=== PATIENT | female | born 1990 | race Two or more races ===

== ENCOUNTER 2016-08-10 21:37 | Emergency (ER) | payer OTHER ==
[2016-08-10 21:47] VITALS: TEMP 98.5; BMI 29.2
--- NOTE | 2016-08-10 23:24 | PDOC ---
History of Present Illness - General Chief Complaint: Psychiatric Stated Complaint: DEPRESSION Time Seen by Provider: 08/10/16 21:52 History Source: Patient Exam Limitations: No Limitations - History of Present Illness Initial Comments: 26-year-old female without any past medical history presents to the emergency department with her mother and 8-year-old daughter complaining of feeling sad and depressed but adamantly denies suicidal thoughts/intentions or homicidal thoughts/intentions. Patient states her of 10 years moved out 2 weeks ago and has made her feel sad. Patient denies any headache, dizziness, lightheadedness, nausea/vomiting, fever/chills, chest pain, shortness of breath , abdominal pains, urinary symptoms, extremity numbness or tingling sensation. Patient says she would never hurt himself because she has a 8-year-old daughter and her mother who is very supportive of her. Timing/Duration: yesterday Associated Symptoms: denies symptoms Past History - Past Medical History Allergies/Adverse Reactions: Allergies fish derived [Fish derived] Allergy (Verified 08/10/16 21:44) rash,swelling Home Medications: Ambulatory Orders NK [No Known Home Medication] 03/29/16 LMP: 06/26/12 - Immunization History Immunization Up to Date: No - Social History Smoking History: No Smoking Status: Never smoked Number of Cigarettes Per Day: 0 Alcohol Use: occasionally Drug Use: none *Review of Systems - Review of Systems Able to Perform ROS?: Yes Comments:: 08/10/16 23:30 CONSTITUTIONAL: Absent: fever, chills, diaphoresis, generalized weakness, malaise, loss of appetite HEENT: Absent: rhinorrhea, nasal congestion, throat pain, throat swelling, difficulty swallowing, mouth swelling, ear pain, eye pain, visual Changes CARDIOVASCULAR: Absent: chest pain, loss of consciousness, palpitations, irregular heart rate, peripheral edema RESPIRATORY: Absent: cough, shortness of breath, dyspnea with exertion, orthopnea, wheezing, stridor, hemoptysis GASTROINTESTINAL: Absent: abdominal pain, abdominal distension, nausea, vomiting, diarrhea, constipation, melena, hematochezia GENITOURINARY: Absent: dysuria, frequency, urgency, hesitancy, hematuria, flank pain, genital pain MUSCULOSKELETAL: Absent: myalgia, arthralgia, joint swelling SKIN: Absent: rash, itching, pallor HEMATOLOGIC/IMMUNOLOGIC: Absent: easy bleeding, easy bruising, lymphadenopathy, frequent infections ENDOCRINE: Absent: unexplained weight gain, unexplained weight loss, heat intolerance, cold intolerance NEUROLOGIC: Absent: headache, focal weakness or paresthesias, dizziness, unsteady gait, seizure, mental status changes, bladder or bowel incontinence PSYCHIATRIC: +depressed Absent: anxiety, suicidal or homicidal ideation, hallucinations. *Physical Exam - Vital Signs Last Vital Signs Temp Pulse Resp BP Pulse Ox 98.5 F 78 20 111/72 100 08/10/16 21:39 08/10/16 21:39 08/10/16 21:39 08/10/16 21:39 08/10/16 21:39 - Physical Exam Comments: 08/10/16 23:30 GENERAL: Well developed, well nourished. Awake and alert. No acute distress. HEENT: Normocephalic, atraumatic. PERRLA, EOMI. No conjunctival pallor. Sclera are non- icteric. Moist mucous membranes. Oropharynx is clear. NECK: Supple. Full ROM. No JVD. Carotid pulses 2+ and symmetric, without bruits. No thyromegaly. No lymphadenopathy. CARDIOVASCULAR: Regular rate and rhythm. No murmurs, rubs, or gallops. Distal pulses are 2+ and symmetric. PULMONARY: No evidence of respiratory distress. Lungs clear to auscultation bilaterally. No wheezing, rales or rhonchi. ABDOMINAL: Soft. Non-tender. Non-distended. No rebound or guarding. No organomegaly. Normoactive bowel sounds. MUSCULOSKELETAL Normal range of motion at all joints. No bony deformities or tenderness. No CVA tenderness. EXTREMITIES: No cyanosis. No clubbing. No edema. No calf tenderness. SKIN: Warm and dry. Normal capillary refill. No rashes. No jaundice. NEUROLOGICAL: Alert, awake, appropriate. Cranial nerves 2-12 intact. No deficits to light touch and temperature in face, upper extremities and lower extremities. No motor deficits in the in face, upper extremities and lower extremities. Normoreflexic in the upper and lower extremities. Normal speech. Toes are down- going bilaterally. Gait is normal without ataxia. PSYCHIATRIC: Cooperative. Good eye contact. Appropriate mood and affect. *DC/Admit/Observation/Transfer Diagnosis at time of Disposition: Depression (emotion) Qualifiers: Depression Type: other depression Qualified Code(s): F32.89 - Other specified depressive episodes - Discharge Dispostion Disposition: HOME Condition at time of disposition: Stable - Referrals Referrals: STAFF,NOT ON [Primary Care Provider] - Isabella Barrett MD [Staff Physician] - - Patient Instructions Printed Discharge Instructions: DI for Depression -- Adult Progress Note - Progress Note Progress Note: 2215hrs:Called Nena GÓMEZ/psychiatry continuity director 2300hrs: Called psychiatry continuity director/ Dr. Barrett 0021hrs; Called DR. Barrett/psychiatry continuity director No response 0117hrs: Patient agrees to stay in the emergency department until morning to see a psychiatrist. 0610hrs: Called Dr. Barrett/psychiatrist 0628hrs: Dr. Reddy called back; will consult pt this morning 0700hrs: Signed out to DORINA Cavazos. Dr. Barrett will consult pt in the ER this morning
[2016-08-11] MEDS ORDERED: ALPRAZolam 0.25 MG TABLET PO ONE (00:39)
[2016-08-11] MEDS ORDERED: ALPRAZolam 0.25 MG TABLET ONE (00:46)
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
[2016-08-11 10:39] VITALS: BP 123/66; PULSE 81
== END 2016-08-11 10:39 | disposition home or self-care (01) ==
LOC: JER 21:37
DX: F32.89 Other specified depressive episodes (principal); F41.8 Other specified anxiety disorders
CPT/HCPCS: 99283-25

== ENCOUNTER 2016-08-17 14:22 | Emergency (ER) | payer OTHER ==
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
[2016-08-17 15:04] VITALS: BP 125/83; PULSE 80; TEMP 98; BMI 29.2
--- NOTE | 2016-08-17 16:32 | PN ---
Progress Note (short form) - Note Progress Note: Patient returned to Er reporting that she could not find any psych to see her. staff report that she mentioned some thing about wanting to drive her car into a tree. Patient deniers any suicidal plans, feels frustrated> she vcame wiytjh her mom. She denies any other vself damaging plans. PLAN : discharge from Er. will go to [address] to a mental health clinic.
== END 2016-08-17 16:52 | disposition home or self-care (01) ==
LOC: JER 14:22
DX: F32.89 Other specified depressive episodes (principal)
CPT/HCPCS: 99282-25

== ENCOUNTER 2017-03-20 13:42 | Emergency (ER) | payer BC, OTHER ==
[2017-03-20 13:50] VITALS: TEMP 98; BMI 27.1
--- NOTE | 2017-03-20 14:45 | PDOC ---
History of Present Illness <LelandHeather - Last Filed: 03/20/17 14:44> - History of Present Illness Initial Comments: 03/20/17 15:36 Ms. Lagos is a 27 yo female with no pmh who presents with a 2 day history of pain to coccyx region when sitting. She rates the pain as 10/10 and says she has had accompanying subjective fevers and chills. She reports she has had similar in the past between her thighs as well as to the back of her knee but they usually go away and are not as painful. Allergies: NKDA <Douglas Myers - Last Filed: 03/20/17 18:11> - General Chief Complaint: Abscess Boil Stated Complaint: CYST Time Seen by Provider: 03/20/17 14:44 Past History - Past Medical History COPD: No Other medical history: NONE - Surgical History Abdominal Surgery: Yes Appendectomy: Yes - Immunization History Immunization Up to Date: No - Suicide/Smoking/Psychosocial Hx Smoking Status: No Smoking History: Never smoked Have you smoked in the past 12 months: No Number of Cigarettes Smoked Daily: 0 Hx Alcohol Use: Yes (SOCIAL) Drug/Substance Use Hx: No Substance Use Type: None <Heather Gramajo - Last Filed: 03/20/17 14:44> <Douglas Myers - Last Filed: 03/20/17 18:11> - Past Medical History Allergies/Adverse Reactions: Allergies Allergy/AdvReac Type Severity Reaction Status Date / Time fish derived [Fish derived] Allergy rash,swelli Verified 03/20/17 17:43 ng No Known Drug Allergies Allergy Unverified 03/20/17 17:43 Home Medications: Ambulatory Orders Naproxen [Naprosyn -] 250 mg PO BID #28 tablet 03/20/17 Review of Systems - Review of Systems Comments:: 03/20/17 15:38 GENERAL/CONSTITUTIONAL: No fever or chills. No weakness. HEAD, EYES, EARS, NOSE AND THROAT: No change in vision. No ear pain or discharge. No sore throat. CARDIOVASCULAR: No chest pain or shortness of breath RESPIRATORY: No cough, wheezing, or hemoptysis. GASTROINTESTINAL: No nausea, vomiting, diarrhea or constipation. GENITOURINARY: No dysuria, frequency, or change in urination. MUSCULOSKELETAL: No joint or muscle swelling or pain. No neck or back pain. SKIN: +Pain noted to "tailbone" NEUROLOGIC: No headache, vertigo, loss of consciousness, or change in strength/ sensation. ENDOCRINE: No increased thirst. No abnormal weight change HEMATOLOGIC/LYMPHATIC: No anemia, easy bleeding, or history of blood clots. ALLERGIC/IMMUNOLOGIC: No hives or skin allergy. <Douglas Myers - Last Filed: 03/20/17 18:11> *Physical Exam - Vital Signs Last Vital Signs Temp Pulse Resp BP Pulse Ox 98.0 F 83 20 116/66 99 03/20/17 13:47 03/20/17 13:47 03/20/17 13:47 03/20/17 13:47 03/20/17 13:47 <Heather Gramajo - Last Filed: 03/20/17 14:44> - Vital Signs Last Vital Signs Temp Pulse Resp BP Pulse Ox 98.0 F 83 20 116/66 99 03/20/17 13:47 03/20/17 13:47 03/20/17 13:47 03/20/17 13:47 03/20/17 13:47 - Physical Exam Comments: 03/20/17 15:38 GENERAL: Awake, alert, and fully oriented, in no acute distress HEAD: No signs of trauma, normocephalic, atraumatic EYES: PERRLA, EOMI, sclera anicteric, conjunctiva clear ENT: Auricles normal inspection, hearing grossly normal, nares patent, oropharynx clear without exudates. Moist mucosa NECK: Normal ROM, supple, no lymphadenopathy, JVD, or masses LUNGS: No distress, speaks full sentences, clear to auscultation bilaterally HEART: Regular rate and rhythm, normal S1 and S2, no murmurs, rubs or gallops, peripheral pulses normal and equal bilaterally. ABDOMEN: Soft, nontender, normoactive bowel sounds. No guarding, no rebound. No masses EXTREMITIES: Normal inspection, Normal range of motion, no edema. No clubbing or cyanosis. NEUROLOGICAL: Cranial nerves II through XII grossly intact. Normal speech, normal gait, no focal sensorimotor deficits SKIN: +top of intergluteal cleft is acutely painful to touch with firmness appreciated (left more than right to both firmness and pain). No erythema, warmth, or fluctuance noted. Area is approximately 2.5 cm in diameter on left and 0.5 cm diameter on right. <Douglas Myers - Last Filed: 03/20/17 18:11> ED Treatment Course - LABORATORY CBC & Chemistry Diagram: 03/20/17 16:37 03/20/17 16:37 <Douglas Myers - Last Filed: 03/20/17 18:11> Medical Decision Making - Medical Decision Making 03/20/17 18:06 Exam positive for pilonidal cyst in intergluteal cleft. Labs grossly wnl as below. Naproxen proscribed for pain control until patient able to present to gen surg. Patient verbalized understanding and will follow-up. Laboratory Results - last 24 hr 03/20/17 03/20/17 03/20/17 16:37 16:37 16:37 WBC 12.7 H RBC 4.65 Hgb 14.7 Hct 44.0 MCV 94.5 MCH 31.5 MCHC 33.3 RDW 13.8 Plt Count 209 MPV 10.0 Neutrophils % 71.0 Lymphocytes % 20.9 D Monocytes % 6.9 Eosinophils % 0.8 Basophils % 0.4 Sodium 138 Potassium 4.3 Chloride 104 Carbon Dioxide 31 Anion Gap 3 L BUN 7 D Creatinine 0.8 Creat Clearance w eGFR > 60 Random Glucose 102 Calcium 8.6 Total Bilirubin 1.0 D AST 10 L D ALT 23 D Alkaline Phosphatase 106 Total Protein 7.3 Albumin 3.6 Serum , Qual Negative Urine HCG, Qual 03/20/17 16:37 WBC RBC Hgb Hct MCV MCH MCHC RDW Plt Count MPV Neutrophils % Lymphocytes % Monocytes % Eosinophils % Basophils % Sodium Potassium Chloride Carbon Dioxide Anion Gap BUN Creatinine Creat Clearance w eGFR Random Glucose Calcium Total Bilirubin AST ALT Alkaline Phosphatase Total Protein Albumin Serum , Qual Urine HCG, Qual Negative <Douglas Myers - Last Filed: 03/20/17 18:11> *DC/Admit/Observation/Transfer <Heather Gramajo - Last Filed: 03/20/17 14:44> <Douglas Myers - Last Filed: 03/20/17 18:11> Diagnosis at time of Disposition: Pilonidal cyst - Discharge Dispostion Disposition: HOME - Prescriptions Prescriptions: Naproxen [Naprosyn -] 250 mg PO BID #28 tablet - Referrals Referrals: Jean Wild MD [Staff Physician] - - Patient Instructions Printed Discharge Instructions: Pilonidal Cyst Additional Instructions: Please return if unable to control pain with proscribed medications or if you experience fever, chills, or other concerning symptoms. Follow-up with Dr. Wild as discussed.
[2017-03-20 16:58] LABS: BASOPHIL 0.4 % (0-2.0); EOSINOPHIL 0.8 % (0-4.5); MCH 31.5 pg (25.7-33.7); MCHC 33.3 g/dl (32.0-36.0); MEAN CELL VOLUME 94.5 fl (80-96); PLATELET COUNT 209 K/MM3 (134-434); RDW 13.8 % (11.6-15.6); WHITE BLOOD COUNT 12.7 K/mm3 (4.0-10.0)
[2017-03-20] MEDS ORDERED: KETOROLAC TROMETHAMINE 15 MG/ML VIAL IVPUSH ONE (17:09)
[2017-03-20 17:35] LABS: ALBUMIN 3.6 g/dl (3.4-5.0); ALK PHOS 106 U/L (45-117); ANION GAP 3 (8-16); CALCIUM 8.6 mg/dL (8.5-10.1); CO2 31 mmol/L (21-32); CREATININE 0.8 mg/dL (0.55-1.02); GLUCOSE,RANDOM 102 mg/dL (74-106); SGOT/AST 10 U/L (15-37); SGPT/ALT 23 U/L (12-78); TOT PROT 7.3 g/dl (6.4-8.2)
[2017-03-20] MEDS ORDERED: KETOROLAC TROMETHAMINE 15 MG/ML VIAL IM ONE (17:35)
[2017-03-20] MEDS ORDERED: KETOROLAC TROMETHAMINE 15 MG/ML VIAL ONE (17:44)
[2017-03-20 18:21] VITALS: BP 114/65; PULSE 78
== END 2017-03-20 18:21 | disposition home or self-care (01) ==
LOC: JER 13:42
PROC: 3E0233Z Introduction of Anti-inflammatory into Muscle, Percutaneous Approach (ICD-10-PCS; principal; 2017-03-20)
DX: L05.91 Pilonidal cyst without abscess (principal)
CPT/HCPCS: 36415; 80053; 84703; 85025; 99282-25

== ENCOUNTER 2017-03-26 14:03 | Inpatient (IN) | payer BC ==
[2017-03-26 14:10] VITALS: BMI 27.1
[2017-03-26] MEDS ORDERED: morphine CARPU-JECT 2 MG/1 ML DISP.SYRIN IVPUSH ONE (14:30)
[2017-03-26] MEDS ORDERED: VANCOMYCIN 1,000 MG in DEXTROSE 5%-WATER - 250 ML IVPB ONE (14:30)
--- NOTE | 2017-03-26 14:35 | PDOC ---
History of Present Illness <Bobby Donovan - Last Filed: 03/26/17 15:25> - General History Source: Patient Exam Limitations: No Limitations - History of Present Illness Initial Comments: 03/26/17 15:06 The patient is a 27 year old female with no significant PMH who presents to the emergency department with a worsening gluteal abscess. The patient reports that she was at the ED on 03/20 for the same painful, persistent gluteal abscess and was sent home on anti-inflammatories. The patient went to Dr. Whiting today who attempted incision and drainage but was referred to Dr. Britt for OR I&D because the abscess was too deep. The patient presents today with increased swelling, fever and chills since last night. The patient notes that the gluteal abscess is warm and is unable to comfortably sit or walk. The patient denies any drainage. The patient states that she has had abscesses in the past that either resolved on their own or with I&D. Allergies: Shellfish Past surgical history: None reported. Social history: No reported alcohol, drug, or cigarette use. PCP: Dr. Whiting <Kia Vega - Last Filed: 03/26/17 15:29> - General Chief Complaint: Wound Stated Complaint: POST SURG (PCP SENT) Time Seen by Provider: 03/26/17 14:21 Past History - Past Medical History COPD: No - Surgical History Abdominal Surgery: Yes Appendectomy: Yes - Immunization History Immunization Up to Date: No - Suicide/Smoking/Psychosocial Hx Smoking Status: No Smoking History: Never smoked Have you smoked in the past 12 months: No Number of Cigarettes Smoked Daily: 0 Hx Alcohol Use: No Drug/Substance Use Hx: No Substance Use Type: None <Bobby Donovan - Last Filed: 03/26/17 15:25> <Kia Vega - Last Filed: 03/26/17 15:29> - Past Medical History Allergies/Adverse Reactions: Allergies Allergy/AdvReac Type Severity Reaction Status Date / Time fish derived [Fish derived] Allergy rash,swelli Verified 03/26/17 14:11 ng No Known Drug Allergies Allergy Verified 03/26/17 14:11 Home Medications: Ambulatory Orders NK [No Known Home Medication] 03/26/17 Review of Systems - Review of Systems Constitutional: Yes: Chills, Fever Respiratory: No: Cough ABD/GI: No: Blood Streaked Bowels : No: Dysuria, Hematuria Integumentary: Yes: See HPI All Other Systems: Reviewed and Negative <Bobby Donovan - Last Filed: 03/26/17 15:25> *Physical Exam - Vital Signs Last Vital Signs Temp Pulse Resp BP Pulse Ox 97.9 F 85 18 110/69 98 03/26/17 14:07 03/26/17 14:07 03/26/17 14:07 03/26/17 14:07 03/26/17 14:07 <Bobby Donovan - Last Filed: 03/26/17 15:25> - Vital Signs Last Vital Signs Temp Pulse Resp BP Pulse Ox 97.9 F 85 18 110/69 98 03/26/17 14:07 03/26/17 14:07 03/26/17 14:07 03/26/17 14:07 03/26/17 14:07 - Physical Exam Comments: 03/26/17 15:00 GENERAL: The patient is awake, alert, and fully oriented. HEAD: Normal with no signs of trauma. EYES: Pupils equal, round and reactive to light, extraocular movements intact, sclera anicteric, conjunctiva clear with no pallor. ENT: Ears normal, nares patent, oropharynx clear without exudates. Moist mucous membranes. NECK: Normal range of motion, supple without lymphadenopathy, JVD, or masses. LUNGS: Breath sounds equal, clear to auscultation bilaterally. No wheeze/ crackles. HEART: Regular rate and rhythm, normal S1 and S2 without murmur or rub. ABDOMEN: Soft/nontender/nondistended. BS wnl. No guarding or rebound. No palpable masses. No hepatosplenomegaly. EXTREMITIES: Normal range of motion, no edema. No clubbing or cyanosis. No cords, erythema, or tenderness. NEUROLOGICAL: Cranial nerves II through XII grossly intact. Normal speech, normal gait. PSYCH: Normal mood, normal affect. SKIN: (+) 10 cm induration and tenderness on the upper left gluteal cleft radiating slightly to the right. Stellate incision was made. Bloody ooze. No cellulitis. No crepitus. <Kia Vega - Last Filed: 03/26/17 15:29> ED Treatment Course - LABORATORY CBC & Chemistry Diagram: 03/26/17 14:23 03/26/17 14:23 <Bobby Donovan - Last Filed: 03/26/17 15:25> - LABORATORY CBC & Chemistry Diagram: 03/26/17 14:23 03/26/17 14:23 - ADDITIONAL ORDERS Additional order review: 03/26/17 14:23 RBC 4.33 MCV 93.7 MCHC 33.0 RDW 13.1 MPV 9.5 Neutrophils % 76.3 Lymphocytes % 13.6 D Monocytes % 8.8 Eosinophils % 0.5 Basophils % 0.8 - Medications Given in the ED: ED Medications Discontinued Medications Generic Name Dose Route Start Last Admin Trade Name Pepe PRN Reason Stop Dose Admin Morphine Sulfate 2 mg 03/26/17 14:30 03/26/17 14:46 Morphine Injection - IVPUSH 03/26/17 14:31 2 mg ONCE ONE Administration <Kia Vega - Last Filed: 03/26/17 15:29> Medical Decision Making - Medical Decision Making 03/26/17 14:32 A portion of this note was documented by scribe services under my direction. I have reviewed the details of the note, within reason, and agree with the documentation with the following case summary and management plan written by me. Healthy 27-year-old female presents for persistent and worsening gluteal abscess. Initially presented on 03/20 with 1 day of symptoms, was discharged on anti-inflammatories, but over the last 6 days reports increasing swelling and pain and redness with fever/chills last night, seen at Dr. Whiting office today and attempted incision and drainage but wound was found to be too deep, referred to ED for OR with Dr. Britt. afebrile abd soft R upper gluteal induration and tenderness, about 10cm, extending to the gluteal cleft. stellate incision draining blood, no cellulitis/crepitus 27y/o F with gluteal cyst/abscess with increasing pain/swelling. afebrile here, sent for OR I+D with Dr. britt. pre-op labs pain control admitted to Dr. Whiting as planned. leukocytosis of 16. D/W leonidas Whitingaqthelma and blood cultures added <Bobby Donovan - Last Filed: 03/26/17 15:25> - Medical Decision Making 2:40pm Consulted with Dr. Britt for I&D <Kia Vega - Last Filed: 03/26/17 15:29> *DC/Admit/Observation/Transfer <Bobby Donovan - Last Filed: 03/26/17 15:25> - Attestations Scribe Attestion: 03/26/17 15:01 Documentation prepared by Kia Vega, acting as medical records manager for Bobby Donovan MD. <Kia Vega - Last Filed: 03/26/17 15:29> Diagnosis at time of Disposition: Pilonidal cyst, Abscess, gluteal, right - Discharge Dispostion Condition at time of disposition: Fair
[2017-03-26 14:43] LABS: BASOPHIL 0.8 % (0-2.0); EOSINOPHIL 0.5 % (0-4.5); MCH 30.9 pg (25.7-33.7); MEAN CELL VOLUME 93.7 fl (80-96); MEAN PLT VOLUME 9.5 fl (7.5-11.1); NEUTROPHILS 76.3 % (42.8-82.8); PLATELET COUNT 226 K/MM3 (134-434); RDW 13.1 % (11.6-15.6); WHITE BLOOD COUNT 16.2 K/mm3 (4.0-10.0)
[2017-03-26 15:09] LABS: ALBUMIN 3.4 g/dl (3.4-5.0); ALK PHOS 122 U/L (45-117); ANION GAP 7 (8-16); BILIRUBIN,TOTAL 1.2 mg/dL (0.2-1.0); CALCIUM 8.4 mg/dL (8.5-10.1); CO2 26 mmol/L (21-32); CREATININE 0.7 mg/dL (0.55-1.02); GLUCOSE,RANDOM 91 mg/dL (74-106); SGOT/AST 20 U/L (15-37); SGPT/ALT 43 U/L (12-78); TOT PROT 7.5 g/dl (6.4-8.2)
[2017-03-26 15:11] LABS: INR 1.28 (0.82-1.09); PROTHROMBIN TIME (PATIENT) 14.5 SEC (9.98-11.88)
[2017-03-26] MEDS ORDERED: LEVOFLOXACIN 500 MG IVPB 500 MG/100 ML BAG IVPB ONE (15:13)
[2017-03-26 15:14] LABS: ACTIVATED PTT 28.3 SECONDS (26.9-34.4)
[2017-03-26] MEDS ORDERED: ONDANSETRON 4 MG/2 ML VIAL IVPUSH PRN (15:16)
--- NOTE | 2017-03-26 15:17 | HP ---
Admitting History and Physical - Primary Care Physician PCP: Gerardo Whiting - Admission Chief Complaint: SENT FROM MY OFFICE FOR ABSCESS TO BUTTOCK History of Present Illness: PATIENT FAILED ON PO ABX OUTPATIENT FOR ABSCESS TO PERIRECTAL AREA, HOT HARD AND TENDER, I AND D ATTEMPTED IN MY OFFICE BUT UNSUCCESSFUL. SENT TO ED FOR IV ABX AND SURGERY TO I AND D IN OPERATING ROOM History Source: Patient - Smoking History Smoking history: Never smoked Have you smoked in the past 12 months: No Aproximately how many cigarettes per day: 0 - Alcohol/Substance Use Hx Alcohol Use: No Home Medications - Allergies Allergies/Adverse Reactions: Allergies Allergy/AdvReac Type Severity Reaction Status Date / Time fish derived [Fish derived] Allergy rash,swelli Verified 03/26/17 14:11 ng No Known Drug Allergies Allergy Verified 03/26/17 14:11 - Home Medications Home Medications: Ambulatory Orders NK [No Known Home Medication] 03/26/17 Review of Systems - Review of Systems Constitutional: reports: Fever Eyes: reports: No Symptoms HENT: reports: No Symptoms Neck: reports: No Symptoms Cardiovascular: reports: No Symptoms Respiratory: reports: No Symptoms Gastrointestinal: reports: No Symptoms Genitourinary: reports: No Symptoms Musculoskeletal: reports: No Symptoms Integumentary: reports: No Symptoms Neurological: reports: No Symptoms Endocrine: reports: No Symptoms Hematology/Lymphatic: reports: No Symptoms Psychiatric: reports: No Symptoms Physical Examination Vital Signs: Vital Signs Temperature 97.9 F 03/26/17 14:07 Pulse Rate 85 03/26/17 14:07 Respiratory Rate 18 03/26/17 14:07 Blood Pressure 110/69 03/26/17 14:07 O2 Sat by Pulse Oximetry (%) 98 03/26/17 14:07 Constitutional: Yes: Severe Distress Eyes: Yes: WNL HENT: Yes: WNL Neck: Yes: WNL Cardiovascular: Yes: WNL Respiratory: Yes: WNL Gastrointestinal: Yes: WNL Renal/: Yes: WNL Musculoskeletal: Yes: Back Pain Extremities: Yes: WNL Edema: No Peripheral Pulses WNL: Yes Integumentary: Yes: Erythema Wound/Incision: Yes: Open to air, Draining (TENDER ABSCESS 6CM TO BUTTOCK), Reddened, Excoriated Neurological: Yes: WNL ...Motor Strength: WNL Psychiatric: Yes: WNL Labs: CBC, BMP 03/26/17 14:23 03/26/17 14:23 Problem List - Problems (1) Abscess, gluteal, right Code(s): L02.31 - CUTANEOUS ABSCESS OF BUTTOCK (2) Pilonidal cyst Code(s): L05.91 - PILONIDAL CYST WITHOUT ABSCESS Assessment/Plan IV ABX SURGERY FOR I AND D PAIN CONTROL
[2017-03-26] MEDS ORDERED: ACETAMINOPHEN 325 MG TABLET (FP) PO PRN (15:19)
[2017-03-26] MEDS ORDERED: morphine SULFATE 4 MG/ML VIAL ONE (16:57)
[2017-03-26] MEDS: morphine SULFATE 4 MG/ML VIAL IVPUSH PRN (17:00)
[2017-03-26] MEDS ORDERED: FLU VACCINE QUAD 60 MCG/0.5 ML (MDV 17-18) IM ONE (18:49)
--- NOTE | 2017-03-26 21:06 | CONSULT ---
- Consultation REQUESTING PROVIDER: Johanne RICO/Marleny RICO CONSULT REQUEST: We have been asked to surgically evaluate this patient for ( specify). PCP:Gerardo Whiting HISTORY OF PRESENT ILLNESS:Flako who is a y/o female w/ a h/o cutaneous abscesses in the past who presents with a 1 week or greater h/.o pain and swelling and redness over her left medial gluteal cleft; she was txed w/ PO antibiotics w/o relief and an attempt at I and D in the office of the PCOP who subsequently sent her to the ER for evaluation; she c/o unrelenting pain PMHx: as abov e only PSHx: as above only Home Medications Medication Instructions Recorded NK [No Known Home Medication] 03/26/17 Allergies Allergy/AdvReac Type Severity Reaction Status Date / Time fish derived [Fish derived] Allergy rash,swelli Verified 03/26/17 14:11 ng No Known Drug Allergies Allergy Verified 03/26/17 14:11 REVIEW OF SYSTEMS: CONSTITUTIONAL: fever CARDIOVASCULAR: Absent: chest pain, syncope, palpitations, irregular heart rate, lightheadedness , peripheral edema RESPIRATORY: Absent: cough, shortness of breath, dyspnea with exertion, wheezing, stridor, hemoptysis GASTROINTESTINAL: Absent: abdominal pain, abdominal distension, nausea, vomiting, diarrhea, constipation, melena, hematochezia GENITOURINARY: Absent: dysuria, frequency, urgency, hesitancy, hematuria, flank pain, genital pain MUSCULOSKELETAL: Absent: myalgia, arthralgia, joint swelling, back pain, neck pain SKIN: Absent: rash, itching, pallor HEMATOLOGIC/IMMUNOLOGIC: Absent: easy bleeding, easy bruising, lymphadenopathy NEUROLOGIC: Absent: headache, focal weakness, paresthesias, dizziness, unsteady gait, seizure, mental status changes, bladder or bowel incontinence PSYCHIATRIC: Absent: anxiety, depression, suicidal or homicidal ideation, hallucinations. PHYSICAL EXAM: GENERAL: Awake, alert, and fully oriented, in acute distress b/o pain HEAD: Normal with no signs of trauma. EYES: PERRL, sclera anicteric, conjunctiva clear. NECK: Normal ROM, supple without lymphadenopathy, JVD, or masses. ABDOMEN: Soft, nontender, not distended, normoactive bowel sounds, no guarding, no rebound, no masses. No organomegaly. MUSCULOSKELETAL: Normal ROM at all joints. No bony deformities or tenderness. No CVA tenderness. UPPER EXTREMITIES: 2+ pulses, warm, well-perfused. No cyanosis. Cap refill <2 seconds. No peripheral edema. LOWER EXTREMITIES: 2+ pulses, warm, well-perfused. No calf tenderness. No peripheral edema. NEUROLOGICAL: Normal speech, gait not observed. PSYCH: Cooperative. Good eye contact. Appropriate mood and affect. SKIN: Warm, dry, normal turgor, STS and induration and erythema w/ttp over a previous recent I and D site and the surrounding area; blood draining from the I and D site Vital Signs Temperature 98.9 F 03/26/17 18:48 Pulse Rate 107 H 03/26/17 18:48 Respiratory Rate 18 03/26/17 18:48 Blood Pressure 113/69 03/26/17 18:48 O2 Sat by Pulse Oximetry (%) 98 03/26/17 14:07 Lab Results WBC 16.2 K/mm3 (4.0-10.0) H 03/26/17 14:23 RBC 4.33 M/mm3 (3.60-5.2) 03/26/17 14:23 Hgb 13.4 GM/dL (10.7-15.3) 03/26/17 14:23 Hct 40.6 % (32.4-45.2) 03/26/17 14:23 MCV 93.7 fl (80-96) 03/26/17 14:23 MCHC 33.0 g/dl (32.0-36.0) 03/26/17 14:23 RDW 13.1 % (11.6-15.6) 03/26/17 14:23 Plt Count 226 K/MM3 (134-434) 03/26/17 14:23 Sodium 138 mmol/L (136-145) 03/26/17 14:23 Potassium 3.7 mmol/L (3.5-5.1) 03/26/17 14:23 Chloride 105 mmol/L (98-107) 03/26/17 14:23 Carbon Dioxide 26 mmol/L (21-32) 03/26/17 14:23 Anion Gap 7 (8-16) L 03/26/17 14:23 BUN 13 mg/dL (7-18) D 03/26/17 14:23 Creatinine 0.7 mg/dL (0.55-1.02) 03/26/17 14:23 Random Glucose 91 mg/dL (74-106) 03/26/17 14:23 Calcium 8.4 mg/dL (8.5-10.1) L 03/26/17 14:23 Blood Type O POSITIVE 03/26/17 14:23 Antibody Screen Negative 03/26/17 14:23 INR 1.28 (0.82-1.09) H 03/26/17 14:23 W/U to date reviewed; CT scan pelvis pending IMP: ABSSSI of the left gluteal cleft of possible pilonidal origin PLAN: I and D in OR IN AM; r/b/t/a's d/w the patient who will give informed consent; she understands the wound will remian open to drain by secondary intention. Jean Wild MD FACS Visit type - Case Type Case Type: ED Admission - Emergency Emergency Visit: Yes ED Registration Date: 03/26/17 Care time: The patient presented to the Emergency Department on the above date and was hospitalized for further evaluation of their emergent condition. - New patient This patient is new to me today: Yes Date on this admission: 03/26/17 - Critical Care Critical Care patient: No
[2017-03-26] MEDS: D5-1/2NS+20 MEQ KCL - 20 MEQ/1,000 ML INFUS.BAG IV SCH (22:35)
[2017-03-27] MEDS: morphine SULFATE 4 MG/ML VIAL IVPUSH PRN ×2 (02:52→20:15)
[2017-03-27] MEDS: D5-1/2NS+20 MEQ KCL - 20 MEQ/1,000 ML INFUS.BAG IV SCH (06:07)
[2017-03-27] MEDS ORDERED: morphine SULFATE 4 MG/ML VIAL IVPUSH PRN ×2 (07:00→10:33)
[2017-03-27 07:57] LABS: MCH 31.1 pg (25.7-33.7); MCHC 33.2 g/dl (32.0-36.0); MEAN CELL VOLUME 93.5 fl (80-96); MEAN PLT VOLUME 9.8 fl (7.5-11.1); PLATELET COUNT 191 K/MM3 (134-434); RDW 13.2 % (11.6-15.6); WHITE BLOOD COUNT 14.1 K/mm3 (4.0-10.0)
[2017-03-27 08:33] LABS: ALBUMIN 2.8 g/dl (3.4-5.0); ANION GAP 7 (8-16); CALCIUM 8.3 mg/dL (8.5-10.1); CO2 28 mmol/L (21-32); CREATININE 0.7 mg/dL (0.55-1.02); GLUCOSE,RANDOM 105 mg/dL (74-106); SGPT/ALT 38 U/L (12-78)
[2017-03-27 08:35] LABS: ALK PHOS 111 U/L (45-117); SGOT/AST 20 U/L (15-37); TOT PROT 6.2 g/dl (6.4-8.2)
[2017-03-27] MEDS ORDERED: SODIUM CHLORIDE 1,000 ML IV SCH (10:30)
--- NOTE | 2017-03-27 10:33 | PN ---
Progress Note, Physician Chief Complaint: AWAKE IN MODERATE DISTRESS PAIN CONTROLLED - Current Medication List Current Medications: Active Medications Acetaminophen (Tylenol -) 650 mg PO Q6H PRN PRN Reason: FEVER OR PAIN Last Admin: 03/26/17 19:01 Dose: 650 mg Sodium Chloride (Normal Saline -) 1,000 mls @ 100 mls/hr IV ASDIR STEPHANY Morphine Sulfate (Morphine Sulfate) 1 mg IVPUSH Q4H PRN PRN Reason: PAIN Last Admin: 03/27/17 07:26 Dose: 1 mg Ondansetron HCl (Zofran Injection) 4 mg IVPUSH Q4H PRN PRN Reason: NAUSEA AND/OR VOMITING - Objective Vital Signs: Vital Signs Temperature 98.9 F 03/27/17 06:34 Pulse Rate 83 03/27/17 06:34 Respiratory Rate 18 03/27/17 06:34 Blood Pressure 92/55 03/27/17 06:34 O2 Sat by Pulse Oximetry (%) 98 03/26/17 21:00 Constitutional: Yes: Moderate Distress Eyes: Yes: WNL HENT: Yes: WNL Neck: Yes: WNL Cardiovascular: Yes: WNL Respiratory: Yes: WNL Gastrointestinal: Yes: WNL ...Rectal Exam: Yes: Other Genitourinary: Yes: WNL Musculoskeletal: Yes: Muscle Pain Extremities: Yes: WNL Edema: No Peripheral Pulses WNL: Yes Integumentary: Yes: Other Wound/Incision: Yes: Open to air, Other (LARGE ABSCESS PINODAL SACRAL BUTTOCK ABSCESS TENDER TO TOUCH) Neurological: Yes: WNL ...Motor Strength: WNL Psychiatric: Yes: WNL Labs: CBC, BMP 03/27/17 06:00 03/27/17 06:00 INR, PTT INR 1.28 (0.82-1.09) H 03/26/17 14:23 Problem List - Problems (1) Abscess, gluteal, right Code(s): L02.31 - CUTANEOUS ABSCESS OF BUTTOCK (2) Pilonidal cyst Code(s): L05.91 - PILONIDAL CYST WITHOUT ABSCESS Assessment/Plan MEDICALLY CLEARED FOR ABSCESS I AND D IV ABX NORMAL SALINE 250 CC BOLUS NOW FOR LOW BP NORMAL SALINE 100C HR REDUCE MORPHINE 2MG Q 6 HRS PRN CHANGE TO PERCOCET PO POST OP
[2017-03-27] MEDS ORDERED: SODIUM CHLORIDE 0.9% 1000 ML INFUS.BAG IV ONE (11:00)
[2017-03-27] MEDS ORDERED: VANCOMYCIN 1,000 MG in DEXTROSE 5%-WATER - 250 ML IVPB SCH (12:00)
--- NOTE | 2017-03-27 13:06 | CON.ID ---
Consult Consult Specialty:: Infectious Disease Reason for Consultation:: Abscess - History of Present Illness History of Present Illness: This is a 27 year old female with history of small skin abscesses (last time 4 yrs ago)presenting with progressively worsening gluteal crease pain and induration since 1 week ago. She was seen in the ER initial and discharged home. She was then seen as outpatient by her physician who attempted incision and drainage but induration was too deep. The patient is now hospitalized and awaiting I+D in the OR. She reports fever and chills and extreme pain especially while ambulating. Denies having any other specific complaints. 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: No: Alzheimer's, CVA, Dementia, Migraine, Multiple Sclerosis, Peripheral Neuropathy, Parkinson's, Seizure, Syncope, TIA, Vertigo, Other Cardio/Vascular: No: AFIB, Aneurysm, Aortic Insufficiency, Aortic Stenosis, CAD , CHF, Deep Vein Thrombosis, HTN, Hyperlipdemia, VA, Mitral Insufficiency, Mitral Stenosis, Murmur, Pulmonary Hypertension, Other Pulmonary: No: Asthma, Bronchitis, Cancer, COPD, O2 Dependent, Pneumonia, Previously Intubated, Pulmonary Embolus, Pulmonary Fibrosis, Sleep Apnea, Other Gastrointestinal: No: Ascites, Cancer, Constipation, Crohn's Disease, Diverticulitis, Diverticulosis, Esophageal Varices, Gastritis, GERD, GI Bleed, Hemorrhoids, Hiatal Hernia, Inflamatory Bowel Disease, Irritable Bowel Disease, Pancreatitis, Peptic Ulcer Disease, Ulcerative Colitis, Other Hepatobiliary: No: Cirrhosis, Cholelithiasis, Cholecystitis, Choledocholithiasis , Hepatitis A, Hepatitis B, Hepatitis C, Other Renal/: No: Renal Failure, Renal Inusuff, BPH, Cancer, Hematuria, Hemodialysis , Neurogenic Bladder, Renal Calculi, UTI, Other Reproductive: No: Ectopic , Endometriosis, Fibroids, PID, Polycystic Ovary Syndrome, Postmenopausal, Other Heme/Onc: No: Anemia, B12 Deficiency, Bleeding Disorder, Cancer, Current Chemotherapy, Current Radiation Therapy, Hemochromatosis, Hypercoaguable State, Myeloproliferative Synd, Sickle Cell Disease, Sickle Cell Trait, Thrombocytopenia, Other Infectious Disease: No: AIDS, C-Diff, Herpes Zoster, HIV, MRSA, STD's, Tuberculosis, VREF, Other Psych: No: Addictions, Anxiety, Bipolar, Depression, Panic, Psychosis, Schizophrenia, Other Musculoskeletal: No: Bursitis, Chronic low back pain, Hemiparesis, Hemiplegia, Osteoarthritis, Paraplegia, Other Rheumatology: No: Fibromyalgia, Gout, Lupus, Rheumatoid Arthritis, Sarcoidosis, Vasculitis, Other ENT: No: Allergic Rhinitis, Sinusitis, Other Endocrine: No: Montour's Disease, [place]'s Disease, Diabetes Insipidus, Diabetes Mellitus (I+D of previous abscesses), Hyperparathyroidism, Hyperthyroidism, Hypothyroidism, Osteopenia, SIADH, Other - Alcohol/Substance Use Hx Alcohol Use: No - Smoking History Smoking history: Never smoked Have you smoked in the past 12 months: No Aproximately how many cigarettes per day: 0 - Social History Usual Living Arrangement: With Child Home Medications - Allergies Allergies/Adverse Reactions: Allergies Allergy/AdvReac Type Severity Reaction Status Date / Time fish derived [Fish derived] Allergy rash,swelli Verified 03/26/17 14:11 ng No Known Drug Allergies Allergy Verified 03/26/17 14:11 - Home Medications Home Medications: Ambulatory Orders NK [No Known Home Medication] 03/26/17 Family Disease History - Family Disease History Family History: Unable to Obtain Review of Systems - Review of Systems Constitutional: reports: Chills, Fever Eyes: reports: No Symptoms HENT: reports: No Symptoms Neck: reports: No Symptoms Cardiovascular: reports: No Symptoms Respiratory: reports: No Symptoms Gastrointestinal: reports: No Symptoms Genitourinary: reports: No Symptoms Breasts: reports: No Symptoms Reported Musculoskeletal: reports: No Symptoms Integumentary: reports: Erythema, Other (induration, tenderness) Neurological: reports: No Symptoms Endocrine: reports: No Symptoms Hematology/Lymphatic: reports: No Symptoms Psychiatric: reports: No Symptoms Physical Exam Vital Signs: Vital Signs Temperature 98.9 F 03/27/17 06:34 Pulse Rate 83 03/27/17 06:34 Respiratory Rate 18 03/27/17 06:34 Blood Pressure 92/55 03/27/17 06:34 O2 Sat by Pulse Oximetry (%) 98 03/26/17 21:00 Constitutional: Yes: Mild Distress HENT: Yes: WNL Neck: Yes: WNL Cardiovascular: Yes: Regular Rate and Rhythm Respiratory: Yes: CTA Bilaterally Gastrointestinal: Yes: Normal Bowel Sounds, Soft Renal/: Yes: WNL Musculoskeletal: Yes: WNL Extremities: Yes: WNL Integumentary: Yes: Other (induration/erythema/tenderness in Rt gluteal/gluteal crease, no current drainage) Neurological: Yes: Alert Psychiatric: Yes: Alert, Oriented Labs: CBC, BMP 03/27/17 06:00 03/27/17 06:00 CBC,CMP WBC 14.1 K/mm3 (4.0-10.0) H 03/27/17 06:00 RBC 3.86 M/mm3 (3.60-5.2) 03/27/17 06:00 Hgb 12.0 GM/dL (10.7-15.3) D 03/27/17 06:00 Hct 36.1 % (32.4-45.2) 03/27/17 06:00 MCV 93.5 fl (80-96) 03/27/17 06:00 MCH 31.1 pg (25.7-33.7) 03/27/17 06:00 MCHC 33.2 g/dl (32.0-36.0) 03/27/17 06:00 RDW 13.2 % (11.6-15.6) 03/27/17 06:00 Plt Count 191 K/MM3 (134-434) 03/27/17 06:00 MPV 9.8 fl (7.5-11.1) 03/27/17 06:00 Neutrophils % 76.3 % (42.8-82.8) 03/26/17 14:23 Lymphocytes % 13.6 % (8-40) D 03/26/17 14:23 Monocytes % 8.8 % (3.8-10.2) 03/26/17 14:23 Eosinophils % 0.5 % (0-4.5) 03/26/17 14:23 Basophils % 0.8 % (0-2.0) 03/26/17 14:23 Sodium 137 mmol/L (136-145) 03/27/17 06:00 Potassium 3.8 mmol/L (3.5-5.1) 03/27/17 06:00 Chloride 102 mmol/L (98-107) 03/27/17 06:00 Carbon Dioxide 28 mmol/L (21-32) 03/27/17 06:00 Anion Gap 7 (8-16) L 03/27/17 06:00 BUN 9 mg/dL (7-18) D 03/27/17 06:00 Creatinine 0.7 mg/dL (0.55-1.02) 03/27/17 06:00 Creat Clearance w eGFR > 60 (>60) 03/27/17 06:00 Random Glucose 105 mg/dL (74-106) 03/27/17 06:00 Calcium 8.3 mg/dL (8.5-10.1) L 03/27/17 06:00 Total Bilirubin 1.0 mg/dL (0.2-1.0) 03/27/17 06:00 AST 20 U/L (15-37) 03/27/17 06:00 ALT 38 U/L (12-78) 03/27/17 06:00 Alkaline Phosphatase 111 U/L (45-117) 03/27/17 06:00 Total Protein 6.2 g/dl (6.4-8.2) L 03/27/17 06:00 Albumin 2.8 g/dl (3.4-5.0) L 03/27/17 06:00 Serum , Qual Negative 03/26/17 14:23 Microbiology 03/26/17 14:30 Abscess Wound Culture - Preliminary NO GROWTH OBTAINED AFTER 24 HOURS INCUBATION, REINCUBATED. Problem List - Problems (1) Fever Code(s): R50.9 - FEVER, UNSPECIFIED (2) Leukocytosis Code(s): D72.829 - ELEVATED WHITE BLOOD CELL COUNT, UNSPECIFIED (3) Abscess, gluteal, right Code(s): L02.31 - CUTANEOUS ABSCESS OF BUTTOCK Assessment/Plan - continue Vancomycin IV - awaiting I+D in OR - intra-op wound cultures - pain control - wound care - repeat cbc in am, monitor temperatures
[2017-03-27] MEDS ORDERED: MIDAZOLAM HCL 2 MG/2 ML SINGLE DOSE VIAL ONE (14:30)
[2017-03-27] MEDS ORDERED: PROPOFOL 20 ML ONE (14:30)
[2017-03-27] MEDS ORDERED: LIDOCAINE HCL/PF 2% SDV 5ML VIAL ONE (14:32)
[2017-03-27] MEDS ORDERED: DEXAMETHASONE SOD PHOSPHATE 4 MG/1 ML VIAL ONE (15:17)
[2017-03-27] MEDS ORDERED: KETOROLAC TROMETHAMINE 30 MG/1 ML VIAL ONE (15:18)
[2017-03-27] MEDS ORDERED: LACTATED RINGERS SOLUTION 1,000 ML IV SCH ×2 (15:45→16:08)
--- NOTE | 2017-03-27 15:52 | OP ---
Operative Note - Note: Operative Date: 03/27/17 Pre-Operative Diagnosis: pilonidal abscess Operation: I and D pilonidal abscess Surgeon: Jean Wild Construction Equipment Mechanic: Rosie Seymour Anesthesia: General Estimated Blood Loss (mls): 10 Drains & Tubes with Location: 1/2" iodoform packing
--- NOTE | 2017-03-27 15:53 | SURG ---
Surgery Doctor Assistant Note Doctor Assistant: Rosie Seymour PA-C Date of Service: 03/27/17 Diagnosis: pilonidal cyst Procedure: Incision and drainage of pilonidal cyst I was present for the entirety of the operative procedure. For further detail, please refer to operative report. Visit type - Case Type Case Type: ED Admission - Emergency Emergency Visit: Yes ED Registration Date: 03/26/17 Care time: The patient presented to the Emergency Department on the above date and was hospitalized for further evaluation of their emergent condition. - New patient This patient is new to me today: Yes Date on this admission: 03/27/17
[2017-03-27] MEDS ORDERED: ACETAMINOPHEN 1000 MG/100 ML VIAL (NON FORMULARY) IVPB ONE ×2 (16:00→16:45)
[2017-03-27] MEDS ORDERED: HYDROmorphone HCL CARPU-JECT 1 MG/1 ML DISP.SYRIN IVPUSH PRN (16:08)
[2017-03-27] MEDS ORDERED: ONDANSETRON 4 MG/2 ML VIAL IVPUSH PRN (16:08)
[2017-03-27] MEDS ORDERED: HYDROmorphone HCL CARPU-JECT 2 MG/1 ML DISP.SYRIN ONE (16:13)
[2017-03-27] MEDS: HYDROmorphone HCL CARPU-JECT 1 MG/1 ML DISP.SYRIN IVPUSH PRN ×2 (16:20→16:45)
[2017-03-27] MEDS ORDERED: VANCOMYCIN 1,000 MG in DEXTROSE 5%-WATER - 250 ML IVPB ONE (16:45)
[2017-03-27] MEDS: SODIUM CHLORIDE 1,000 ML IV SCH (17:00)
[2017-03-28] MEDS ORDERED: PT OWN MED DRAWER 7, Y5N ONE (00:10)
[2017-03-28] MEDS: VANCOMYCIN 1,000 MG in DEXTROSE 5%-WATER - 250 ML IVPB SCH ×3 (00:12→23:23)
[2017-03-28] MEDS: morphine SULFATE 4 MG/ML VIAL IVPUSH PRN ×4 (01:21→20:28)
[2017-03-28] MEDS: ACETAMINOPHEN 325 MG TABLET (FP) PO PRN ×2 (09:52→18:53)
--- NOTE | 2017-03-28 10:15 | PN ---
Progress Note, Physician Chief Complaint: EVENTS REVIEWED TOLERATING PAIN - Current Medication List Current Medications: Active Medications Acetaminophen (Tylenol -) 650 mg PO Q6H PRN PRN Reason: FEVER OR PAIN Last Admin: 03/28/17 09:52 Dose: 650 mg Lactated Ringer's (Lactated Ringers Solution) 1,000 mls @ 75 mls/hr IV ASDIR STEPHANY Sodium Chloride (Normal Saline -) 1,000 mls @ 100 mls/hr IV ASDIR STEPHANY Last Admin: 03/27/17 17:00 Dose: 0 mls Vancomycin HCl 1,000 mg/ (Dextrose) 250 mls @ 166.667 mls/hr IVPB BID@0000, 1200 STEPHANY PRN Reason: Protocol Last Admin: 03/28/17 00:12 Dose: 166.667 mls/hr Morphine Sulfate (Morphine Sulfate) 2 mg IVPUSH Q6H PRN PRN Reason: PAIN Last Admin: 03/28/17 07:51 Dose: 2 mg Ondansetron HCl (Zofran Injection) 4 mg IVPUSH Q4H PRN PRN Reason: NAUSEA AND/OR VOMITING - Objective Vital Signs: Vital Signs Temperature 97.8 F 03/28/17 06:00 Pulse Rate 59 L 03/28/17 06:00 Respiratory Rate 18 03/28/17 06:00 Blood Pressure 82/35 03/28/17 06:00 O2 Sat by Pulse Oximetry (%) 96 03/27/17 21:00 Constitutional: Yes: Mild Distress Eyes: Yes: WNL HENT: Yes: WNL Neck: Yes: WNL Cardiovascular: Yes: WNL Respiratory: Yes: WNL Gastrointestinal: Yes: WNL ...Rectal Exam: Yes: Other Genitourinary: Yes: WNL Musculoskeletal: Yes: WNL Extremities: Yes: WNL Edema: No Peripheral Pulses WNL: Yes Integumentary: Yes: Other Wound/Incision: Yes: Dressing Dry and Intact Neurological: Yes: WNL ...Motor Strength: WNL Psychiatric: Yes: WNL Labs: CBC, BMP 03/27/17 06:00 03/27/17 06:00 INR, PTT INR 1.28 (0.82-1.09) H 03/26/17 14:23 Problem List - Problems (1) Abscess, gluteal, right Code(s): L02.31 - CUTANEOUS ABSCESS OF BUTTOCK (2) Pilonidal cyst Code(s): L05.91 - PILONIDAL CYST WITHOUT ABSCESS Assessment/Plan IV ABX NORMAL SALINE 250 CC BOLUS NOW FOR LOW BP NORMAL SALINE 100C HR REDUCE MORPHINE 2MG Q 6 HRS PRN CHANGE TO PERCOCET PO POST OP DC PLANNING TOMORROW IV ABX CHANGE TO PO NURSING CARE FOR HOME WOUND DRESSING
--- NOTE | 2017-03-28 10:49 | PN ---
Progress Note, Physician Chief Complaint: S/P EXCISION PILONIDAL CYST UNDER GENERAL ANESTHESIA History of Present Illness: POST OP DAY ONE. - Current Medication List Current Medications: Active Medications Acetaminophen (Tylenol -) 650 mg PO Q6H PRN PRN Reason: FEVER OR PAIN Last Admin: 03/28/17 09:52 Dose: 650 mg Sodium Chloride (Normal Saline -) 1,000 mls @ 100 mls/hr IV ASDIR STEPHANY Last Admin: 03/27/17 17:00 Dose: 0 mls Vancomycin HCl 1,000 mg/ (Dextrose) 250 mls @ 166.667 mls/hr IVPB BID@0000, 1200 STEPHANY PRN Reason: Protocol Last Admin: 03/28/17 00:12 Dose: 166.667 mls/hr Morphine Sulfate (Morphine Sulfate) 2 mg IVPUSH Q6H PRN PRN Reason: PAIN Last Admin: 03/28/17 07:51 Dose: 2 mg Ondansetron HCl (Zofran Injection) 4 mg IVPUSH Q4H PRN PRN Reason: NAUSEA AND/OR VOMITING - Objective Vital Signs: Vital Signs Temperature 97.8 F 03/28/17 06:00 Pulse Rate 59 L 03/28/17 06:00 Respiratory Rate 18 03/28/17 06:00 Blood Pressure 82/35 03/28/17 06:00 O2 Sat by Pulse Oximetry (%) 96 03/27/17 21:00 Constitutional: Yes: Well Nourished, Mild Distress Cardiovascular: Yes: WNL Respiratory: Yes: WNL Gastrointestinal: Yes: WNL Labs: CBC, BMP 03/27/17 06:00 03/27/17 06:00 INR, PTT INR 1.28 (0.82-1.09) H 03/26/17 14:23 Assessment/Plan PATIENT HAD NO ADVERSE EFFECT FROM ANESTHETIC, COMPLAINING OF PAIN THIS MORNING , WILL BE GIVEN MORPHINE AND TYLENOL. DEPT OF ANESTHESIA WILL SIGN OFF CARE AT THIS TIME
[2017-03-28] MEDS ORDERED: SODIUM CHLORIDE 250 ML IV ONE (11:00)
[2017-03-28] MEDS: SODIUM CHLORIDE 1,000 ML IV SCH ×2 (12:32→23:23)
--- NOTE | 2017-03-28 12:36 | PN ---
Progress Note (short form) - Note Progress Note: Attending Surgeon POD#1 Minimal c/o pain; feels better VSS AF wound-packing removed; no purulent drainage; sts is resolving; o/w negative. IMP: doing well PLAN : LWC and f/u post d/c in my office; may need VNS given location. Jean Wild MD FACS
--- NOTE | 2017-03-28 15:56 | PN ---
Progress Note, Physician Chief Complaint: Infectious Disease f/u: History of Present Illness: Pt states pain has improved since I+D in OR. Afebrile, able to ambulate today without as much pain. No other specific complaints. - Current Medication List Current Medications: Active Medications Acetaminophen (Tylenol -) 650 mg PO Q6H PRN PRN Reason: FEVER OR PAIN Last Admin: 03/28/17 09:52 Dose: 650 mg Sodium Chloride (Normal Saline -) 1,000 mls @ 100 mls/hr IV ASDIR STEPHANY Last Admin: 03/28/17 12:32 Dose: 100 mls/hr Vancomycin HCl 1,000 mg/ (Dextrose) 250 mls @ 166.667 mls/hr IVPB BID@0000, 1200 STEPHANY PRN Reason: Protocol Last Admin: 03/28/17 12:20 Dose: 166.667 mls/hr Morphine Sulfate (Morphine Sulfate) 2 mg IVPUSH Q6H PRN PRN Reason: PAIN Last Admin: 03/28/17 14:04 Dose: 2 mg Ondansetron HCl (Zofran Injection) 4 mg IVPUSH Q4H PRN PRN Reason: NAUSEA AND/OR VOMITING - Objective Vital Signs: Vital Signs Temperature 97.9 F 03/28/17 14:26 Pulse Rate 68 03/28/17 14:26 Respiratory Rate 18 03/28/17 14:26 Blood Pressure 111/48 03/28/17 14:26 O2 Sat by Pulse Oximetry (%) 96 03/28/17 09:00 Constitutional: Yes: No Distress Cardiovascular: Yes: Regular Rate and Rhythm Respiratory: Yes: CTA Bilaterally Gastrointestinal: Yes: Normal Bowel Sounds, Soft Musculoskeletal: Yes: WNL Extremities: Yes: WNL Integumentary: Yes: Other (mild induration Rt buttock with tenderness, dressing in place) Wound/Incision: Yes: Other (with mild bloody drainage on gauze) Labs: CBC, BMP 03/27/17 06:00 03/27/17 06:00 INR, PTT INR 1.28 (0.82-1.09) H 03/26/17 14:23 Microbiology 03/27/17 17:30 Gram Stain - Final Pilonidal Cyst 03/26/17 14:30 Gram Stain - Final Abscess Wound Culture - Final NO AEROBIC OR ANAEROBIC GROWTH OBTAINED. 03/26/17 16:00 Blood Culture - Preliminary Blood - Peripheral Venous NO GROWTH OBTAINED AFTER 24 HOURS, INCUBATION TO CONTINUE FOR 4 DAYS. 03/26/17 16:00 Blood Culture - Preliminary Blood - Peripheral Venous NO GROWTH OBTAINED AFTER 24 HOURS, INCUBATION TO CONTINUE FOR 4 DAYS. Problem List - Problems (1) Fever Code(s): R50.9 - FEVER, UNSPECIFIED (2) Leukocytosis Code(s): D72.829 - ELEVATED WHITE BLOOD CELL COUNT, UNSPECIFIED (3) Abscess, gluteal, right Code(s): L02.31 - CUTANEOUS ABSCESS OF BUTTOCK Assessment/Plan 27 y.o. female admitted with abscess/infected pilonidal cyst overlying lower sacrum/coccyx is s/p I+D. Afebrile, with less pain - f/u repeat cbc - cont IV antibiotics for now - plan switch to po, f/u wound culture isolates currently stable
[2017-03-28 16:46] LABS: BASOPHIL 0.1 % (0-2.0); EOSINOPHIL 0.2 % (0-4.5); MCH 31.4 pg (25.7-33.7); MCHC 33.4 g/dl (32.0-36.0); MEAN CELL VOLUME 93.8 fl (80-96); NEUTROPHILS 82.6 % (42.8-82.8); PLATELET COUNT 229 K/MM3 (134-434); RDW 12.8 % (11.6-15.6); WHITE BLOOD COUNT 17.7 K/mm3 (4.0-10.0)
[2017-03-28] MEDS ORDERED: POLYETHYLENE GLYCOL 3350 119 GM BTL PO ONE (20:55)
[2017-03-28] MEDS ORDERED: POLYETHYLENE GLYCOL 3350 119 GM BTL PO PRN (20:55)
[2017-03-29] MEDS: ACETAMINOPHEN 325 MG TABLET (FP) PO PRN ×2 (01:01→08:51)
[2017-03-29] MEDS: morphine SULFATE 4 MG/ML VIAL IVPUSH PRN (02:33)
[2017-03-29 10:54] VITALS: BP 105/65; PULSE 67; TEMP 98.1
--- NOTE | 2017-03-29 11:20 | DS ---
Physical Examination Vital Signs: Vital Signs Temperature 98.1 F 03/29/17 09:00 Pulse Rate 67 03/29/17 09:00 Respiratory Rate 18 03/29/17 09:00 Blood Pressure 105/65 03/29/17 09:00 O2 Sat by Pulse Oximetry (%) 97 03/29/17 09:00 Findings/Remarks: AWAKE ALERT IN PAIN, ABLE TO GO HOME Constitutional: Yes: Mild Distress Eyes: Yes: WNL HENT: Yes: WNL Neck: Yes: WNL Cardiovascular: Yes: WNL Respiratory: Yes: WNL Gastrointestinal: Yes: WNL Renal/: Yes: WNL Musculoskeletal: Yes: WNL Extremities: Yes: WNL Edema: No Peripheral Pulses WNL: Yes Integumentary: Yes: WNL Wound/Incision: Yes: Dressing Dry and Intact Neurological: Yes: WNL ...Motor Strength: WNL Psychiatric: Yes: WNL Labs: CBC, BMP 03/28/17 16:30 03/27/17 06:00 Discharge Summary Reason For Visit: ABSCESS OF RIGHT BUTTOCK Current Active Problems Abscess, gluteal, right (Acute) Fever (Acute) Leukocytosis (Acute) Pilonidal cyst (Acute) Procedures: Principal: I AND D ON OPERATING ROOM Hospital Course: LABS/CX Condition: Fair - Instructions Diet, Activity, Other Instructions: Dr. Wild Discharge Instructions Dear DIAZ ROBERTS, Post Operative Instructions Physical activity Resume your normal everyday activity as tolerated no heavy lifting or exercise until seen by your surgeon. You may walk unlimited amounts of and climb stairs. You may resume driving the car when you feel safe and comfortable behind the wheel. Wound care You may shower but do not submerge the incision. Apply dry dressing and keep clean and dry. Do not apply ointments or lotions to area. Diet There are no dietary restrictions. Eat healthy, high-fiber foods. Drink 6 to 8 glasses of liquid each day. This will assist in keeping your bowels are regular. Pain management You may take Tylenol or acetaminophen or Ibuprofen (for example, Motrin, Advil etc.) Any pain prescription medication ordered should be taken as prescribed for moderate to severe pain. Call Dr. Wild for any of the following: Severe pain not relieved by medication Fever of 101 or higher Excessive bleeding or drainage on dressing Inability to urinate Call the office at [phone] for a post operative appointment in 7 - [address] WHITING MARLENE March 12PM Referrals: Gerardo Whiting MD [Primary Care Provider] - Disposition: VNS/HOME HEALTH CARE - Home Medications Comprehensive Discharge Medication List: Ambulatory Orders NK [No Known Home Medication] 03/26/17
[2017-03-29] MEDS ORDERED: AMOX TR/POT CLAV 875MG/125MG TABLETS (FP) PO SCH (11:30)
[2017-03-29] MEDS ORDERED: PT OWN MED DRAWER 7, Y5N ONE (13:24)
--- NOTE | 2017-04-02 21:20 | OP ---
DATE OF OPERATION: 03/27/2017 PREOPERATIVE DIAGNOSIS: Infected pilonidal cyst and sinus tract. POSTOPERATIVE DIAGNOSIS: Infected pilonidal cyst and sinus tract. PROCEDURE: Incision and drainage of pilonidal cyst and sinus tract. SURGEON: Jean Wild MD SHOP MECHANIC: Rosie Seymour PA-C ANESTHESIA: General. OPERATIVE FINDINGS: There was an extensive abscess involving a pilonidal cyst and sinus tract. The rest of the findings were unremarkable. DESCRIPTION OF PROCEDURE: The patient was placed on the operating room table in the prone position after being intubated on the stretcher with endotracheal anesthesia. The area over the pilonidal cyst and sinus tract was then prepped with ChloraPrep and draped in sterile fashion. A timeout was taken, and then, an incision was made over the area of maximum fluctuance using a scalpel. Copious purulent drainage was removed and a portion sent for culture and sensitivity to the microbiology lab. All loculations were broken up using blunt dissection, and then, the tract and abscess cavity were copiously irrigated with saline and hydrogen peroxide in a 50:50 mixture. Hemostasis was secured with electrocautery, and then, the abscess cavity was packed with 1-inch Iodoform gauze. Dry sterile dressings were placed and the procedure terminated at this point and the patient aroused from general anesthesia and transferred to the postanesthesia care unit in stable condition, awake and alert. ESTIMATED BLOOD LOSS: Approximately 20 mL. REPLACEMENTS: Crystalloid. DRAINS: None. SPECIMENS: Culture and sensitivity to Microbiology. I, Jean Wild MD, was physically present in the operating room from the time the patient was placed on the operating table until she was transferred to the postanesthesia care unit in my accompaniment. MD MEGAN Lloyd/[id number]
== END 2017-03-29 14:26 | disposition home health service (06) | DRG 603 ==
LOC: JER 14:03 → JERBED 15:11 → J7W 18:35
PROVIDERS: ADMIT Family Medicine; ATTEND Family Medicine
PROC: 0H98XZZ Drainage of Buttock Skin, External Approach (ICD-10-PCS; principal; 2017-03-27 14:00)
DX: L05.01 Pilonidal cyst with abscess (principal); R50.9 Fever, unspecified; D72.829 Elevated white blood cell count, unspecified
CPT/HCPCS: 36415; 72193-TC; 80053; 84703; 85025; 85027; 85610; 85730; 86850; 86900; 86901; 87040; 87070; 87076; 87205; 94760; 99283-25

== ENCOUNTER 2018-11-19 15:13 | Emergency (ER) | payer BC ==
[2018-11-19 15:24] VITALS: TEMP 98.7; BMI 25.6
--- NOTE | 2018-11-19 18:11 | PDOC ---
History of Present Illness - General Chief Complaint: Psychiatric Stated Complaint: DEPRESSION/FEVER Time Seen by Provider: 11/19/18 17:51 - History of Present Illness Initial Comments: CHIEF COMPLAINT: depression/anxiety, eyelid swelling HISTORY OF PRESENT ILLNESS: 28 yo F presents to ED with depression. Patient reports she has not been able to do anything and is nausea with headache and anxiety, chest pain, SOB. "Can't take full breath." Patient states she does see a therapist and was supposed to see a psychiatrist last week but missed the appointment "because I couldn't get out of bed." Feels acute episode of depression last 3-4 days. Denies any SI/HI, denies any plan to hurt self or others. Ambien given to her by mother last night to go to sleep. Pt also c/o of redness and swelling to R eyelid. No recent travel or sick contacts. PAST MEDICAL HISTORY: Denies past medical history FAMILY HISTORY: Denies SOCIAL HISTORY: Denies tobacco, alcohol, illicit drug use. SURGICAL HISTORY: Denies ALLERGIES: fish allergies REVIEW OF SYSTEMS General/Constitutional: Denies fever or chills. Denies weakness, weight change. HEENT: Denies change in vision. Denies ear pain or discharge. Denies sore throat. Cardiovascular: Denies chest pain or shortness of breath. Respiratory: Denies cough, wheezing, or hemoptysis. Gastrointestinal: Denies nausea, vomiting, diarrhea or constipation. Denies rectal bleeding. Genitourinary: Denies dysuria, frequency, or change in urination. Musculoskeletal: Denies joint or muscle swelling or pain. Denies neck or back pain. Skin and breasts: Denies rash or easy bruising. Neurologic: Denies headache, vertigo, loss of consciousness, or loss of sensation. Psychological: Patient reports ongoing depression and anxiety. PHYSICAL EXAM General Appearance: Well-appearing, appropriately dressed. No apparent distress , no intoxication. HEENT: Mild erythema/swelling to R eyelid. EOMI, PERRLA, normal ENT inspection, normal voice, TMs normal, pharynx normal. No conjunctival pallor. No photophobia, scleral icterus. Neck: Supple. Trachea midline. No tenderness, rigidity, carotid bruit, stridor , lymphadenopathy, or thyromegaly. Respiratory/Chest: Lungs CTAB. No shortness of breath, chest tenderness, respiratory distress, accessory muscle use. No crackles, rales, rhonchi, stridor , wheezing, dullness Cardiovascular: RRR. S1, S2. No JVD, murmur, bradycardia, tachycardia. Vascular Pulses: Dorsalis-Pedis (R): 2+, Dorsalis-Pedis (L): 2+ Gastrointestinal/Abdominal: Normal bowel sounds. Abdomen soft, non-distended. No tenderness or rebound tenderness. No organomegaly, pulsatile mass, guarding , hernia, hepatomegaly, splenomegaly. Lymphatic: No adenopathy, tenderness. Musculoskeletal/Extremities: Normal inspection. FROM of all extremities, normal capillary refill. Pelvis Stable. No CVA tenderness. No tenderness to extremities, pedal edema, swelling, erythema or deformity. Integumentary: Appropriate color, dry, warm. No cyanosis, erythema, jaundice or rash Neurologic: fabrication specialist II-XII intact. Fully oriented, alert. Appropriate mood/affect. Motor strength 5/5. No appreciable EOM palsy, facial droop or sensory deficit. Past History - Past Medical History Allergies/Adverse Reactions: Allergies fish derived [Fish derived] Allergy (Verified 11/19/18 15:18) rash,swelling No Known Drug Allergies Allergy (Verified 11/19/18 15:18) Home Medications: Ambulatory Orders Hydroxyzine HCl 50 mg PO QID PRN #20 tablet 11/19/18 LMP: 06/26/12 - Immunization History Immunization Up to Date: No - Social History Smoking History: No Smoking Status: Never smoked Number of Cigarettes Per Day: 0 Alcohol Use: occasionally Drug Use: none *Physical Exam - Vital Signs Last Vital Signs Temp Pulse Resp BP Pulse Ox 98.7 F 93 H 18 125/87 99 11/19/18 15:16 11/19/18 15:16 11/19/18 15:16 11/19/18 15:16 11/19/18 15:16 Plan - Progress Note Progress Note: 11/19/18 16:58 28 yo F presents to ED with depression. -Fluids -atarax -zofran 11/19/18 17:58 Patient reassessed; states she is feeling better and feels safe and comfortable to go home knowing that she has a medication to help her anxiety and to help her sleep. States she will f/u with therapist on Saturday. Advised patient of signs and symptoms for return to ER; patient verbalized understanding and agrees to plan. - Laboratory CBC & Chemistry Diagram: 11/19/18 18:45 11/19/18 18:45 *DC/Admit/Observation/Transfer Diagnosis at time of Disposition: Depression Qualifiers: Depression Type: other depression Qualified Code(s): F32.89 - Other specified depressive episodes - Discharge Dispostion Disposition: HOME Condition at time of disposition: Stable - Prescriptions Prescriptions: Hydroxyzine HCl 50 mg PO QID PRN #20 tablet PRN Reason: Anxiety - Referrals Referrals: Gerardo Whiting MD [Primary Care Provider] - - Patient Instructions Printed Discharge Instructions: DI for Depression -- Adult, DI for Anxiety -- Adult, DI for Blepharitis Additional Instructions: As discussed, please use a warm compress on your eye 15-20 minutes every 4-6 hours to treat the inflammation of your eyelid. Please take medications as prescribed. Follow up with your therapist on Saturday as scheduled. If you develop any worsening feelings of depression or anxiety, or any thoughts of hurting yourself or others, please return to the ER IMMEDIATELY. - Post Discharge Activity Forms/Work/School Notes: Back to Work
[2018-11-19] MEDS ORDERED: hydrOXYzine HCL 25 MG TABLET (FP) PO ONE (18:12)
[2018-11-19] MEDS ORDERED: ONDANSETRON 4 MG/2 ML VIAL IVPUSH ONE (18:12)
[2018-11-19] MEDS ORDERED: ONDANSETRON 4 MG/2 ML VIAL ONE (18:50)
[2018-11-19] MEDS ORDERED: SODIUM CHLORIDE 0.9% 500 ML INFUS.BAG IV ONE (18:53)
[2018-11-19 18:59] LABS: BASO % 0.6 % (0-2.0); EOS % 0.7 % (0-4.5); HEMATOCRIT 42.8 % (32.4-45.2); HEMOGLOBIN 14.6 GM/dL (10.7-15.3); MCH 32.1 pg (25.7-33.7); MCHC 34.1 g/dl (32.0-36.0); MEAN CELL VOLUME 94.3 fl (80-96); MEAN PLT VOLUME 10.1 fl (7.5-11.1); MONO % 7.2 % (3.8-10.2); NEUT % 51.5 % (42.8-82.8); PLATELET COUNT 220 K/MM3 (134-434); RBC 4.54 M/mm3 (3.60-5.2); RDW 12.8 % (11.6-15.6)
[2018-11-19 19:17] LABS: ALBUMIN 4.2 g/dl (3.4-5.0); BILIRUBIN,TOTAL 0.8 mg/dL (0.2-1); BLOOD UREA NITROGEN 11.2 mg/dL (7-18); CALCIUM 9.2 mg/dL (8.5-10.1); POTASSIUM 3.8 mmol/L (3.5-5.1)
[2018-11-19 20:12] VITALS: BP 113/71; PULSE 69
--- NOTE | 2018-11-20 14:38 | EKG ---
Test Reason : Blood Pressure : / mmHG Vent. Rate : 060 BPM Atrial Rate : 060 BPM P-R Int : 174 ms QRS Dur : 070 ms QT Int : 422 ms P-R-T Axes : 025 073 049 degrees QTc Int : 422 ms POOR DATA QUALITY, INTERPRETATION MAY BE ADVERSELY AFFECTED NORMAL SINUS RHYTHM NORMAL ECG NO PREVIOUS ECGS AVAILABLE Confirmed by KRISHNA RICO, NIMA ([id number]) on 11/20/2018 2:38:11 PM Referred By: Confirmed By:NIMA KELLER MD
== END 2018-11-19 20:12 | disposition home or self-care (01) ==
LOC: JER 15:13
PROC: 3E033GC Introduction of Other Therapeutic Substance into Peripheral Vein, Percutaneous Approach (ICD-10-PCS; principal; 2018-11-19)
PROC: 3E0337Z Introduction of Electrolytic and Water Balance Substance into Peripheral Vein, Percutaneous Approach (ICD-10-PCS; 2018-11-19)
DX: F32.89 Other specified depressive episodes (principal)
CPT/HCPCS: 36415; 80053; 85025; 93005; 93010; 99283-25

== ENCOUNTER 2019-11-16 17:36 | Emergency (ER) | payer BC, OTHER ==
[2019-11-16 18:06] VITALS: BP 95/63; PULSE 95; TEMP 98.5; BMI 29.2
[2019-11-16] MEDS ORDERED: KETOROLAC TROMETHAMINE 30 MG/1 ML VIAL IM ONE (18:06)
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
[2019-11-16] MEDS ORDERED: KETOROLAC TROMETHAMINE 30 MG/1 ML VIAL ONE (18:12)
[2019-11-16] MEDS ORDERED: CYCLOBENZAPRINE HCL 10 MG TABLET (FP) PO ONE (18:47)
[2019-11-16] MEDS ORDERED: CYCLOBENZAPRINE HCL 10 MG TABLET (FP) ONE (18:49)
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
== END 2019-11-16 20:29 | disposition home or self-care (01) ==
LOC: JERFT 17:36
PROC: 3E0233Z Introduction of Anti-inflammatory into Muscle, Percutaneous Approach (ICD-10-PCS; principal; 2019-11-16)
DX: S43.402A Unspecified sprain of left shoulder joint, initial encounter (principal); V89.2XXA Person injured in unspecified motor-vehicle accident, traffic, initial encounter
CPT/HCPCS: 71046-TC-FY; 71111-TC-FY; 84703; 99285-25

== ENCOUNTER 2020-06-02 03:06 | Emergency (ER) | payer BC, OTHER ==
[2020-06-02 03:27] VITALS: BP 134/92; PULSE 89; TEMP 98.2; BMI 31.8
[2020-06-02] MEDS ORDERED: SODIUM CHLORIDE 0.9% 500 ML INFUS.BAG IV ONE (03:39)
[2020-06-02] MEDS ORDERED: METOCLOPRAMIDE HCL INJECTION 10 MG/2 ML VIAL IVPUSH ONE (03:40)
[2020-06-02] MEDS ORDERED: MECLIZINE HCL 25 MG TABLET (FP) PO ONE (03:40)
[2020-06-02] MEDS ORDERED: METOCLOPRAMIDE HCL INJECTION 10 MG/2 ML VIAL ONE (03:40)
[2020-06-02] MEDS ORDERED: MECLIZINE HCL 25 MG TABLET (FP) ONE (03:45)
[2020-06-02] MEDS ORDERED: methylPREDNISolone NA SUCC 125 MG/2 ML VIAL IVPUSH ONE (04:49)
[2020-06-02] MEDS ORDERED: methylPREDNISolone NA SUCC 125 MG/2 ML VIAL ONE (04:55)
[2020-06-02 05:41] LABS: URINE APPEARANCE CLEAR; URINE BILIRUBIN NEGATIVE (NEGATIVE); URINE COLOR YELLOW; URINE GLUCOSE (UA) NEGATIVE (NEGATIVE); URINE KETONE NEGATIVE (NEGATIVE); URINE LEUK ESTERASE NEGATIVE (NEGATIVE); URINE NITRITE NEGATIVE (NEGATIVE); URINE PROTEIN NEGATIVE (NEGATIVE); URINE UROBILINOGEN 0.2 mg/dL (0.2-1.0)
[2020-06-02 05:42] LABS: HCG,QUALITATIVE URINE Negative
== END 2020-06-02 06:06 | disposition home or self-care (01) ==
LOC: JER 03:06
PROC: 3E033GC Introduction of Other Therapeutic Substance into Peripheral Vein, Percutaneous Approach (ICD-10-PCS; principal; 2020-06-02)
PROC: 3E033GC Introduction of Other Therapeutic Substance into Peripheral Vein, Percutaneous Approach (ICD-10-PCS; 2020-06-02)
PROC: 3E033GC Introduction of Other Therapeutic Substance into Peripheral Vein, Percutaneous Approach (ICD-10-PCS; 2020-06-02)
DX: G43.909 Migraine, unspecified, not intractable, without status migrainosus (principal); R42 Dizziness and giddiness; R19.7 Diarrhea, unspecified
CPT/HCPCS: 81003; 82962; 84703; 99284-25; C9803; U0003

== ENCOUNTER 2022-08-21 21:34 | Emergency (ER) | payer OTHER ==
[2022-08-21 21:49] VITALS: BP 120/70; PULSE 91; RESP 18; TEMP 98.7; BMI 37.5
[2022-08-21] MEDS ORDERED: MINERAL OIL ENEMA 133 ML ENEMA PR ONE (23:39)
[2022-08-21] MEDS ORDERED: POLYETHYLENE GLYCOL (HEALTHYLAX) 3350 17 GM PACKET ONE (23:40)
[2022-08-21] MEDS ORDERED: POLYETHYLENE GLYCOL (HEALTHYLAX) 3350 17 GM PACKET PO SCH (23:45)
[2022-08-22] MEDS ORDERED: SODIUM CHLORIDE 0.9% 500 ML INFUS.BAG IV ONE (00:30)
[2022-08-22] MEDS ORDERED: POLYETHYLENE GLYCOL (HEALTHYLAX) 3350 17 GM PACKET PO ONE (00:30)
[2022-08-22] MEDS ORDERED: ACETAMINOPHEN 1000 MG/100 ML BAG IVPB ONE (00:30)
[2022-08-22] MEDS ORDERED: ACETAMINOPHEN INJECTION 100 ML IVPB ONE (00:33)
[2022-08-22 00:46] LABS: BASO % 0.4 % (0-2.0); EOS % 1.2 % (0-4.5); HEMATOCRIT 39.3 % (32.4-45.2); HEMOGLOBIN 13.7 GM/dL (10.7-15.3); LYMPH % 35.4 % (8-40); MCH 31.7 pg (25.7-33.7); MCHC 34.8 g/dl (32.0-36.0); MEAN CELL VOLUME 91.1 fl (80-96); MEAN PLT VOLUME 10.2 fl (7.5-11.1); MONO % 5.9 % (3.8-10.2); NEUT % 57.1 % (42.8-82.8); PLATELET COUNT 252 10^3/uL (134-434); RBC 4.32 M/mm3 (3.60-5.2); RDW 13.2 % (11.6-15.6); WHITE BLOOD COUNT 9.5 K/mm3 (4.0-10.0)
[2022-08-22 01:27] LABS: CALCIUM 9.2 mg/dL (8.5-10.1)
[2022-08-22 01:28] LABS: BLOOD UREA NITROGEN 12.2 mg/dL (7-18)
[2022-08-22] MEDS ORDERED: PEG 3350/NA SULF BICARB CL/KCL 4000 ML SOLN.RECON PO ONE (01:28)
[2022-08-22 01:30] LABS: CREATININE 0.9 mg/dL (0.55-1.3)
[2022-08-22 01:32] LABS: BILIRUBIN,TOTAL 0.4 mg/dL (0.2-1); TOT PROT 8.2 g/dl (6.4-8.2)
[2022-08-22] MEDS ORDERED: POLYETHYLENE GLYCOL (HEALTHYLAX) 3350 17 GM PACKET PO SCH (10:00)
== END 2022-08-22 02:10 | disposition home or self-care (01) ==
LOC: JERFT 21:34 → JER 21:34
PROC: 3E033NZ Introduction of Analgesics, Hypnotics, Sedatives into Peripheral Vein, Percutaneous Approach (ICD-10-PCS; principal; 2022-08-21)
DX: K59.00 Constipation, unspecified (principal)
CPT/HCPCS: 36415; 74018-TC-FY; 80053; 84703; 85025; 99284-25

== ENCOUNTER 2023-11-23 22:10 | Emergency (ER) | payer OTHER ==
[2023-11-23 22:16] VITALS: RESP 16; BMI 34.7
[2023-11-23] MEDS ORDERED: ACETAMINOPHEN INJECTION 100 ML IVPB ONE (22:57)
[2023-11-23] MEDS ORDERED: ONDANSETRON 4 MG/2 ML VIAL ONE (22:57)
[2023-11-23] MEDS ORDERED: FAMOTIDINE 20 MG/50 ML IVPB 20 MG/50 ML MG IVPB ONE (22:58)
[2023-11-23] MEDS: ACETAMINOPHEN 1000 MG/100 ML BAG IVPB ONE (23:11)
[2023-11-23] MEDS: ONDANSETRON 4 MG/2 ML VIAL IVPUSH ONE (23:11)
[2023-11-23] MEDS: SODIUM CHLORIDE 1,000 ML IV STA (23:11)
[2023-11-23] MEDS: FAMOTIDINE 20 MG/50 ML IVPB 20 MG/50 ML MG IVPB ONE (23:11)
[2023-11-23 23:16] LABS: BASO % 0.2 % (0-2.0); EOS % 0.1 % (0-4.5); HEMATOCRIT 41.8 % (32.4-45.2); HEMOGLOBIN 14.1 GM/dL (10.7-15.3); LYMPH % 6.3 % (8-40); MCH 31.2 pg (25.7-33.7); MCHC 33.7 g/dl (32.0-36.0); MEAN CELL VOLUME 92.5 fl (80-96); MEAN PLT VOLUME 9.7 fl (7.5-11.1); NEUT % 87.4 % (42.8-82.8); PLATELET COUNT 224 10^3/uL (134-434); RBC 4.52 M/mm3 (3.60-5.2); RDW 14.2 % (11.6-15.6); WHITE BLOOD COUNT 8.3 K/mm3 (4.0-10.0)
[2023-11-23 23:29] LABS: POTASSIUM 3.8 mmol/L (3.5-5.1)
[2023-11-23 23:31] LABS: ALBUMIN 3.9 g/dl (3.4-5.0); BLOOD UREA NITROGEN 13.4 mg/dL (7-18); CALCIUM 8.7 mg/dL (8.5-10.1)
[2023-11-23 23:34] LABS: CREATININE 0.9 mg/dL (0.55-1.3)
[2023-11-23 23:36] LABS: BILIRUBIN,TOTAL 0.9 mg/dL (0.2-1)
[2023-11-24 01:04] LABS: PH,URINE 7.5 (5.0-8.0); URINE APPEARANCE CLEAR; URINE BILIRUBIN NEGATIVE (NEGATIVE); URINE COLOR YELLOW; URINE GLUCOSE (UA) NEGATIVE (NEGATIVE); URINE KETONE NEGATIVE (NEGATIVE); URINE LEUK ESTERASE NEGATIVE (NEGATIVE); URINE NITRITE NEGATIVE (NEGATIVE); URINE PROTEIN NEGATIVE (NEGATIVE)
[2023-11-24] MEDS ORDERED: metroNIDAZOLE 250 MG TABLET ONE (01:23)
[2023-11-24 01:25] VITALS: BP 102/68; PULSE 84; TEMP 99.1
[2023-11-24] MEDS: metroNIDAZOLE 250 MG TABLET PO ONE (01:27)
== END 2023-11-24 01:28 | disposition home or self-care (01) ==
LOC: JER 22:10
PROC: 3E033GC Introduction of Other Therapeutic Substance into Peripheral Vein, Percutaneous Approach (ICD-10-PCS; principal; 2023-11-23)
PROC: 3E033NZ Introduction of Analgesics, Hypnotics, Sedatives into Peripheral Vein, Percutaneous Approach (ICD-10-PCS; 2023-11-23)
PROC: 3E033GC Introduction of Other Therapeutic Substance into Peripheral Vein, Percutaneous Approach (ICD-10-PCS; 2023-11-23)
PROC: 3E0337Z Introduction of Electrolytic and Water Balance Substance into Peripheral Vein, Percutaneous Approach (ICD-10-PCS; 2023-11-23)
DX: A05.9 Bacterial foodborne intoxication, unspecified (principal); R11.10 Vomiting, unspecified; R10.30 Lower abdominal pain, unspecified; R07.9 Chest pain, unspecified; M54.9 Dorsalgia, unspecified; R68.83 Chills (without fever); Z20.822 Contact with and (suspected) exposure to COVID-19
CPT/HCPCS: 0241U-QW; 36415; 80053; 81003; 82962; 83690; 83735; 84703; 85025; 87086; 93005; 93010; 99284-25; J0131